=== PATIENT | female | born 1985 | race African-American/Black ===

== ENCOUNTER 2024-04-03 03:11 | Emergency (ER) | payer BC, SELFPAY ==
[2024-04-03 03:15] VITALS: BP 161/108; PULSE 79; RESP 20; TEMP 36.7; O2SAT 98; BMI 30.3
--- NOTE | 2024-04-03 03:44 | MHC.EDTECH ---
This pct just assumed care of Patient ,blood drawn and sent to lab.
[2024-04-03 03:46] LABS: MANUAL DIFF FLAG NO
[2024-04-03 03:49] LABS: Basophils Percent Auto 0.4 % (0-2); Eosinophils Absolute Auto 0.1 X10*3/uL (0.0-0.4); Eosinophils Percent Auto 1.5 % (0-4); Hematocrit 34.5 % (37.0-47.0); Hemoglobin 11.6 g/dl (12.0-16.0); Imm Gran Abs Auto 0.02 X10*3/uL (0.00-0.03); Imm Gran Pct Auto 0.3 % (0.0-0.4); Lymphocytes Absolute Auto 2.6 X10*3/uL (1.2-4.9); Lymphocytes Percent Auto 33.2 % (20-40); Mean Corpuscular HGB Conc 33.6 g/dl (31.0-35.0); Mean Corpuscular Hemoglobin 28.4 pg (27.0-33.0); Mean Corpuscular Volume 84.6 fL (80.0-98.0); Mean Platelet Volume 9.6 fL (9.4-12.3); Monocytes Absolute Auto 0.5 X10*3/uL (0.1-1.2); Monocytes Percent Auto 5.8 % (2-11); Neutrophils Absolute Auto 4.6 x10*3/uL (2.0-8.3); Neutrophils Percent Auto 58.8 % (45-73); Platelet Count 290 X10*3/uL (160-400); Red Blood Count 4.08 X10*6/uL (4.20-5.50); Red Cell Distribution Width 12.9 % (11.0-16.0); White Blood Count 7.8 X10*3/uL (4.8-10.8)
[2024-04-03 04:03] LABS: Alanine Aminotransferase 14 U/L (0-31); Albumin Level 4.2 g/dL (3.5-5.0); Alkaline Phosphatase 62 U/L (39-117); Anion Gap 13 (12-20); Aspartate Amino Transferase 18 U/L (5-31); Bilirubin Total 0.2 mg/dL (0.0-1.0); Blood Urea Nitrogen 10 mg/dL (9-16); Calcium 9.5 mg/dL (8.4-10.2); Carbon Dioxide 24 mmol/L (22-29); Chloride 102 mmol/L (96-108); Estimated Glomerular Filt Rate > 60; Glucose Random 133 mg/dL (60-115); Potassium 3.8 mmol/L (3.3-5.1); Sodium 135 mmol/L (135-145); Total Protein 7.3 g/dL (6.5-8.0)
[2024-04-03 04:47] VITALS: BP 145/91; PULSE 77; RESP 16; TEMP 36.8; O2SAT 100
--- NOTE | 2024-04-03 05:16 | ED_ITS ---
HPI - General Adult General Chief complaint: General Medical Stated complaint: elevated blood pressure Time Seen by Provider: 04/03/24 05:16 History of Present Illness ED Provider: Trung HUNG narrative: The patient is an ordinarily healthy 38-year-old woman. 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 [facility] [place] [facility] about a year ago. She has 3 children. The patient was at work this evening when she did not feel very well. She felt that she was having trouble taking a deep breath. She had her blood pressure checked at her facility and her blood pressure readings were high. Ultimately her manage her advised her to come to the emergency room. While waiting to be seen here the patient has respiratory symptoms have entirely resolved. The patient has not had any fever, sweats, chills. No cough or sputum. She does not have any chest pain or pleuritic pain. She has not had any pain or swelling in her calves. No peripheral edema. The patient is on no medications. She is on no hormonal medications. She has no significant past medical history. The patient has been having a lot of stress in her life lately related to a divorce she is currently going through. Related Data Allergies Allergy/AdvReac Type Severity Reaction Status Date / Time No Known Allergies Allergy Verified 04/03/24 03:19 Review of Systems 2 Review of Systems: Yes all other systems are reviewed and are negative [facility] Social History Social History Smoked in Last 30 Days: No Use of substances other than those prescribed or required for medical reasons: No Advance Directives: No Do you have a plan to hurt others: No Plan Physical Exam ED Vital Signs: Vital Signs - 24 hr 04/03/24 03:15 04/03/24 04:47 Temperature 98.0 F 98.2 F Pulse Rate 79 77 Respiratory Rate 20 16 Blood Pressure 161/108 H 145/91 H Pulse Oximetry 98 100 Oxygen Delivery Method Room Air Room Air BMI result Body Mass Index 30.3 Const Other: The patient is awake, alert, pleasant, cooperative. She does not appear in any distress. HENMT Head: Yes normal to inspection Face and sinus: Yes normal facial exam Mouth: Normal oral and palatal mucosa present and moist mucous membranes Eyes General: appearance normal, both eyes and all related structures Conjunctivae: conjunctivae normal EOM: EOMs intact bilaterally Neck Other: Moving her neck easily Resp Effort & Inspection: normal respiratory effort Auscultation: clear to auscultation bilaterally Cardio Rate: regular rate Rhythm: regular rhythm Heart sounds: S1 normal heart sound present and S2 normal heart sound present Skin Other: Skin is dry and unremarkable Neuro Other: The patient is awake and alert with a normal mental status. Cranial nerves 2-12 are intact. She moves her extremities normally and appropriately. Extrem Other: No calf swelling or tenderness. No asymmetry. No edema. Medical Decision Making Medical Decision Making [facility] Narrative: The patient is an ordinarily healthy 38-year-old who started to feel like she was having trouble taking a deep breath while she was at work this evening. 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 She was encouraged to come to the emergency room for evaluation. Although she was having a sense of difficulty breathing she did not have any chest pain. She did not have any pleuritic pain. She did not have any cough or sputum. There has been no fever, sweats, chills. The patient is respiratory symptoms have resolved while waiting to be seen here in the emergency room. She is asymptomatic in the emergency room. The patient describes going through a lot of stress related to a divorce. She is not suicidal. The patient has an unremarkable comprehensive metabolic panel and a CBC. The patient is PERC negative. She looks entirely well. I do not think any additional testing is indicated. I suspect that her symptoms may be related to the stress of her divorce. She was given a work note to return to work this evening. Lab Data 04/03/24 03:41 04/03/24 03:41 Labs: Lab Results 04/03/24 Range/Units 03:41 WBC 7.8 (4.8-10.8) X10*3/uL RBC 4.08 L (4.20-5.50) X10*6/uL Hgb 11.6 L (12.0-16.0) g/dl Hct 34.5 L (37.0-47.0) % MCV 84.6 (80.0-98.0) fL MCH 28.4 (27.0-33.0) pg MCHC 33.6 (31.0-35.0) g/dl RDW 12.9 (11.0-16.0) % Plt Count 290 (160-400) X10*3/uL MPV 9.6 (9.4-12.3) fL Immature Gran % (Auto) 0.3 (0.0-0.4) % Neut % (Auto) 58.8 (45-73) % Lymph % (Auto) 33.2 (20-40) % [place] % (Auto) 5.8 (2-11) % Eos % (Auto) 1.5 (0-4) % Baso % (Auto) 0.4 (0-2) % Lymph # (Auto) 2.6 (1.2-4.9) X10*3/uL [place] # (Auto) 0.5 (0.1-1.2) X10*3/uL Eos # (Auto) 0.1 (0.0-0.4) X10*3/uL Baso # (Auto) 0.0 (0.0-0.2) X10*3/uL Abs Immat Gran (auto) 0.02 (0.00-0.03) X10*3/uL Absolute Neuts (auto) 4.6 (2.0-8.3) x10*3/uL Absolute Nucleated RBC 0.000 (0.0-0.012) X10*3/uL Nucleated RBC % (auto) 0.0 (0.0-0.2) /100WBC Sodium 135 (135-145) mmol/L Potassium 3.8 (3.3-5.1) mmol/L Chloride 102 (96-108) mmol/L Carbon Dioxide 24 (22-29) mmol/L Anion Gap 13 (12-20) BUN 10 (9-16) mg/dL Creatinine 0.75 (0.5-1.4) mg/dL Estim Creat Clear Calc 109.0 Estimated GFR > 60 Random Glucose 133 H (60-115) mg/dL Calcium 9.5 (8.4-10.2) mg/dL Total Bilirubin 0.2 (0.0-1.0) mg/dL AST 18 (5-31) U/L ALT 14 (0-31) U/L Alkaline Phosphatase 62 (39-117) U/L Total Protein 7.3 (6.5-8.0) g/dL Albumin 4.2 (3.5-5.0) g/dL Discharge Plan Discharge Clinical Impression: Shortness of breath Patient Disposition: Home, Self-Care Additional Instructions: Your testing in the emergency room today seems to be reassuring. You seemed to have a lot of life stressors at work and this may be part of why you had symptoms tonight. Please plan on following up soon with your regular doctor for a recheck of your blood pressure and to discuss your symptoms. If at any point you feel more short of breath or significantly worse in any other way please return to the emergency room for another evaluation. Stand Alone Forms: Work/School Release Print Language: Armenian
[2024-04-03 05:34] VITALS: BP 145/91; PULSE 77; RESP 16; TEMP 37.1; O2SAT 100
== END 2024-04-03 05:35 | disposition home or self-care (01) ==
PROVIDERS: Emergency Provider Emergency Medicine
DX: R06.02 Shortness of breath (principal); R03.0 Elevated blood-pressure reading, without diagnosis of hypertension; F43.9 Reaction to severe stress, unspecified; Z79.899 Other long term (current) drug therapy
CPT/HCPCS: 36415; 80053; 85025; 99283; 99284